=== PATIENT | male | born 1970 | race Caucasian/White ===

== ENCOUNTER 2021-02-19 06:39 | Day surgery (SDC) | payer OTHER ==
[~2021-02-19] VITALS: Ht 182.9 cm; Wt 143.4 kg
[2021-02-19] MEDS ORDERED: DIOVAN 40MG40 MG PO (06:54)
[2021-02-19 07:20] VITALS: BP 139/99; PULSE 76; TEMP 96.5
[2021-02-19 08:55] VITALS: BP 146/83; PULSE 71
[2021-02-19 09:00] VITALS: BP 145/91; PULSE 72
[2021-02-19 09:15] VITALS: BP 131/98; PULSE 67
[2021-02-19 09:30] VITALS: BP 139/92; PULSE 64
--- NOTE | 2021-02-19 10:00 | NUR ---
0855 Pt returns from endo procedure via cart and RN assist to [facility] [place] [facility]. Pt ambulates from cart to recliner with RN assist. Monitors on and alarms set. Call light within reach. Report received from DAISHA Blank. Pt alert and oriented. Pt requests coffee only. Pt denies any pain or nausea. 0950 Pt taking drink well. No complications noted or mentioned by pt. 0945 Discharge instructions given to pt and pt's . All questions answered to their satisfaction. Handed to pt are a thank you card and discharge information. 1000 Pt transferred out of the hospital via wheelchair and this RN assist, to private vehicle driven by pt's .
--- NOTE | 2021-02-19 10:00 | NUR ---
0939 Pt returns from endo procedure via cart and RN assist to [facility] [place] [facility]. Pt ambulates from cart to recliner with RN assist. Monitors on and alarms set. Call light within reach. Report received from DAISHA Blank. Pt alert and oriented. Pt requests coffee only. Pt denies any pain or nausea. Pt's present in room. 0950 Pt taking drink well. No complications noted or voiced. 0945 Discharge instructions given to pt and pt's . All questions answered to their satisfaction. Handed to pt are a thank you card and discharge information. 1000 Pt transferred out of the hospital via wheelchair and this RN assist, to private vehicle driven by pt's .
== END 2021-02-19 10:00 | disposition home or self-care (01) ==
LOC: SDCO 06:39
DX: Z12.11 Encounter for screening for malignant neoplasm of colon (principal); D12.4 Benign neoplasm of descending colon; D12.5 Benign neoplasm of sigmoid colon; K63.5 Polyp of colon; K57.30 Diverticulosis of large intestine without perforation or abscess without bleeding; I10 Essential (primary) hypertension; G47.33 Obstructive sleep apnea (adult) (pediatric); K21.9 Gastro-esophageal reflux disease without esophagitis; M10.9 Gout, unspecified; E66.01 Morbid (severe) obesity due to excess calories; Z79.899 Other long term (current) drug therapy
CPT/HCPCS: J2704; J7030